=== PATIENT | female | born 2000 | race Two or more races ===

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

== ENCOUNTER → 2021-01-13 | Outpatient (CLI) | payer SELFPAY | LOC: M LABSMTC 10:30 | PROVIDERS: ATTEND Pediatrics | DX: Z11.52 Encounter for screening for COVID-19 (principal) ==

== ENCOUNTER → 2023-09-14 | Outpatient (REF) | payer BC ==
[2023-09-14 14:55] LABS: ALBUMIN 4.1 G/DL (3.2-5.2); ALKALINE PHOSPHATASE 81 U/L (46-116); ALT/SGPT 37 U/L (7.0-40); AST/SGOT 19 U/L (<34); BILIRUBIN,TOTAL 0.7 MG/DL (0.3-1.2); BLOOD UREA NITROGEN 12 MG/DL (9-23); CALCIUM LEVEL 10.1 MG/DL (8.5-10.1); CARBON DIOXIDE LEVEL 29 MMOL/L (20-31); CHLORIDE LEVEL 103 MMOL/L (98-107); CREATININE FOR GFR 0.68 MG/DL (0.55-1.30); GLOMERULAR FILTRATION RATE > 60.0 (>60); GLUCOSE, FASTING 68 MG/DL (60-100); POTASSIUM SERUM 4.1 MMOL/L (3.5-5.1); SODIUM LEVEL 139 MMOL/L (136-145); TOTAL PROTEIN 7.4 G/DL (5.7-8.2)
[2023-09-14 14:56] LABS: FREE T4 1.27 NG/DL (0.89-1.76)
[2023-09-14 14:57] LABS: THYROID STIMULATING HORMONE 1.871 uIU/ML (0.55-4.78)
== END ==
LOC: M SFHCADAM 11:22
PROVIDERS: ATTEND Family Medicine
DX: F41.9 Anxiety disorder, unspecified (principal)

== ENCOUNTER → 2023-10-18 | Outpatient (REF) | LOC: M EMP 09:42 | PROVIDERS: ATTEND Family Medicine | DX: Z11.52 Encounter for screening for COVID-19 (principal) ==

== ENCOUNTER → 2024-04-02 | Outpatient (REF) | payer BC | LOC: M LAB REF 17:45 | PROVIDERS: ATTEND Physician Assistant Medical | DX: B34.9 Viral infection, unspecified (principal) ==

== ENCOUNTER 2024-07-06 03:49 | Emergency (ER) | payer BC ==
[~2024-07-06] VITALS: Ht 158.8 cm; Wt 90.9 kg
[2024-07-06] MEDS: KETOROLAC 30 MG/ML 1ML VIAL IV ONE (07:53)
[2024-07-06] MEDS: METOCLOPRAMIDE 10MG TAB PO ONE (07:53)
[2024-07-06 08:50] VITALS: BP 128/68; TEMP 98; O2SAT 99
== END 2024-07-06 09:14 | disposition home or self-care (01) ==
LOC: M ED 03:49
DX: G43.909 Migraine, unspecified, not intractable, without status migrainosus (principal)
CPT/HCPCS: 70450; 87486; 87581; 87633; 87798; 96374; 99284; J1885

== ENCOUNTER → 2024-08-14 | Outpatient (REF) | LOC: M EMP 07:36 | PROVIDERS: ATTEND Family Medicine | DX: Z11.52 Encounter for screening for COVID-19 (principal) ==

== ENCOUNTER → 2024-08-14 | Outpatient (REF) | LOC: M EMP 07:38 | PROVIDERS: ATTEND Family Medicine | DX: Z11.52 Encounter for screening for COVID-19 (principal) ==

== ENCOUNTER → 2024-08-15 | Outpatient (REF) | payer BC ==
[2024-08-15 12:48] LABS: APPEARANCE, URINE HAZY (CLEAR); BACTERIA, URINE AUTO NEGATIVE (NEGATIVE); BILIRUBIN, URINE AUTO NEGATIVE (NEGATIVE); BLOOD, URINE BLOOD 2+ (NEGATIVE); CALCIUM OXALATE CRYSTALS SMALL; COLOR, URINE YELLOW (YELLOW); GLUCOSE, URINE (UA) AUTO NEGATIVE (NEGATIVE); KETONE, URINE AUTO 1+ mg/dL (NEGATIVE); LEUKOCYTE ESTERASE, URINE AUTO TRACE (NEGATIVE); MUCUS, URINE SMALL (NEGATIVE); NITRITE, URINE AUTO NEGATIVE (NEGATIVE); PROTEIN, URINE AUTO NEGATIVE (NEGATIVE); RBC, URINE AUTO 0 /HPF (0-3); SPECIFIC GRAVITY URINE AUTO 1.019 (1.002-1.035); SQUAMOUS EPITHELIAL CELL UR AU 4 /HPF (0-6); UROBILINOGEN, URINE AUTO 0.2 mg/dL (0.0-2.0); WBC, URINE AUTO 3 /HPF (0-3)
== END ==
LOC: M LAB REF 12:22
PROVIDERS: ATTEND Physician Assistant Medical
DX: N39.0 Urinary tract infection, site not specified (principal)

== ENCOUNTER → 2024-08-24 | Outpatient (REF) | payer BC ==
[2024-08-28 07:01] LABS: HPV APTIMA Detected (Not Detected)
== END ==
LOC: M SFHCWAGY 17:51
PROVIDERS: ATTEND Nurse Practitioner Family
DX: Z12.4 Encounter for screening for malignant neoplasm of cervix (principal); N76.0 Acute vaginitis
CPT/HCPCS: 87624; G0123

== ENCOUNTER → 2024-08-28 | Outpatient (CLI) | payer BC | LOC: M ADAMS 13:51 | PROVIDERS: ATTEND Family Medicine | DX: R05.1 Acute cough (principal) ==

== ENCOUNTER → 2024-09-15 | Outpatient (CLI) | payer BC | LOC: M ADAMS 09:45 | PROVIDERS: ATTEND Family Medicine | DX: J18.9 Pneumonia, unspecified organism (principal) ==

== ENCOUNTER 2025-06-13 11:44 | Emergency (ER) | payer BC ==
[~2025-06-13] VITALS: Ht 157.5 cm; Wt 96.5 kg
[~2025-06-13 11:44] MED LIST changes: -IBUP1TAB6 PO; +SENN-225 PO; -SENO8.6T5 PO; +SFHIBU600 PO
[2025-06-13 11:49] VITALS: TEMP 98.8
[2025-06-13] MEDS: NS (Normal Saline) 0.9% 1,000 ML IV ONE (12:20)
[2025-06-13 12:56] LABS: BASO # 0.1 10^3/uL (0.0-0.2); BASO % 0.7 % (0.0-1.0); EOS # 0.1 10^3/uL (0.0-0.5); EOS % 0.7 % (0.0-3.0); LYMPH # 2.6 10^3/uL (1.5-5.0); LYMPH % 28.6 % (24.0-44.0); MONO # 0.5 10^3/uL (0.0-0.8); MONO % 4.9 % (2.0-8.0); NEUTROPHILS # 5.9 10^3/uL (1.5-8.5); NEUTROPHILS % 64.9 % (36.0-66.0); PLATELET COUNT, AUTOMATED 339 10^3/uL (150-450)
[2025-06-13] MEDS ORDERED: ZOLO25TA PO (13:00)
[2025-06-13] MEDS ORDERED: HYDR-643 PO (13:00)
[2025-06-13] MEDS ORDERED: SETL1TAB PO (13:00)
[2025-06-13] MEDS ORDERED: ZYRT10TA12 PO (13:01)
[2025-06-13] MEDS ORDERED: HOME MED LIST COMPLETE! XX SCH (13:05)
[2025-06-13 13:06] LABS: ALT/SGPT 23 U/L (7.0-40); AST/SGOT 26 U/L (<34); CALCIUM LEVEL 9.9 MG/DL (8.5-10.1); CARBON DIOXIDE LEVEL 23 MMOL/L (20-31); CHLORIDE LEVEL 104 MMOL/L (98-107); CREATININE FOR GFR 0.70 MG/DL (0.55-1.30); GLOMERULAR FILTRATION RATE > 90.0 (>60); MAGNESIUM LEVEL 2.0 MG/DL (1.8-2.4); POTASSIUM SERUM 4.5 MMOL/L (3.5-5.1); SODIUM LEVEL 141 MMOL/L (136-145)
[2025-06-13 13:11] LABS: HCG, SERUM QUALITATIVE NEGATIVE (NEGATIVE)
[2025-06-13] MEDS: ONDANSETRON 4MG 2ML VIAL IV ONE (13:48)
[2025-06-13] MEDS: ACETAMINOPHEN 325 MG TAB PO ONE (13:48)
[2025-06-13 17:01] LABS: AMPHETAMINES LEVEL URINE NEGATIVE (NEGATIVE); BARBITURATES URINE NEGATIVE (NEGATIVE); BENZODIAZEPINES URINE NEGATIVE (NEGATIVE); COCAINE METABOLITE URINE NEGATIVE (NEGATIVE); METHADONE URINE NEGATIVE (NEGATIVE); OPIATES URINE NEGATIVE (NEGATIVE); PHENCYCLIDINE URINE NEGATIVE (NEGATIVE)
[2025-06-13 17:02] LABS: CANNABINOIDS URINE NEGATIVE (NEGATIVE)
[2025-06-13 17:46] VITALS: O2SAT 95
[2025-06-13 19:24] VITALS: BP 147/66
[2025-06-13] MEDS: MECLIZINE 25 MG TABLET PO ONE (19:39)
== END 2025-06-13 19:53 | disposition home or self-care (01) ==
LOC: M ED 11:44
DX: S06.0X0A Concussion without loss of consciousness, initial encounter (principal); Y92.9 Unspecified place or not applicable; Y93.9 Activity, unspecified; Y99.9 Unspecified external cause status; R00.0 Tachycardia, unspecified; F10.10 Alcohol abuse, uncomplicated; Z79.899 Other long term (current) drug therapy
CPT/HCPCS: 70450; 70547; 70551; 72125; 72141; 80053; 80307; 83735; 84703; 85025; 93005; 96361; 96374; 96375; 99284; J2060; J2405